=== PATIENT | male | born 1985 | race Caucasian/White ===

== ENCOUNTER 2022-08-20 22:19 | Emergency (ER) | payer BC ==
[~2022-08-20] VITALS: Ht 188 cm; Wt 129.5 kg
[2022-08-20] MEDS ORDERED: AMOXICILLIN AND1 TA2 PO (23:30)
[2022-08-20] MEDS ORDERED: PREDNISONE20 M1 PO (23:30)
[2022-08-21 00:07] VITALS: BP 117/71
== END 2022-08-20 23:50 | disposition home or self-care (01) ==
LOC: ED 22:19
DX: H66.93 Otitis media, unspecified, bilateral (principal); F17.200 Nicotine dependence, unspecified, uncomplicated; Z28.310 Unvaccinated for COVID-19

== ENCOUNTER 2023-06-15 19:30 | Emergency (ER) | payer BC ==
[~2023-06-15] VITALS: Ht 185.4 cm; Wt 129.5 kg
[~2023-06-15 19:30] MED LIST: AMOXICILLIN AND1 TA2 PO; PREDNISONE20 M1 PO
[2023-06-15 19:56] LABS: BASO # 0.04 K/mm3 (0.02-0.10); EOS # 0.09 K/mm3 (0.04-0.40); EOS % 0.8 % (0.0-4.0); HEMATOCRIT 47.2 % (42.0-52.0); HEMOGLOBIN 15.7 g/dL (13.5-18.0); MEAN CELL VOLUME 90 fl (78-100); MEAN CORPUSCULAR HEMOGLOBIN 30 pg (27-31); MEAN CORPUSCULAR HGB CONC 33 g/dL (33-37); MEAN PLATELET VOLUME 9.2 fl (7.4-10.4); MONO # 0.78 K/mm3 (0.20-0.80); NEU # 7.89 K/mm3 (1.40-6.50); PLATELET COUNT 345 K/mm3 (130-400); RED BLOOD COUNT 5.22 M/mm3 (4.20-5.60); RED CELL DISTRIBUTION WIDTH 12.3 % (11.5-14.5); WHITE BLOOD COUNT 10.7 K/mm3 (4.8-10.8)
[2023-06-15 20:03] LABS: ALBUMIN 4.6 g/dL (3.5-5.0)
[2023-06-15 20:05] LABS: CALCIUM 9.5 mg/dL (8.3-10.5)
[2023-06-15 20:06] LABS: TOTAL PROTEIN 7.4 g/dL (6.4-8.3)
[2023-06-15 20:08] LABS: TOTAL BILIRUBIN 0.4 mg/dL (0.2-1.2)
[2023-06-15] MEDS ORDERED: BACTRIM DS TAB1 EACH PO (21:42)
[2023-06-15 21:57] VITALS: BP 122/86
[2023-06-16 00:16] LABS: URINE APPEARANCE CLEAR (CLEAR); URINE BILIRUBIN NEGATIVE (NEGATIVE); URINE BLOOD TRACE (NEGATIVE); URINE COLOR YELLOW (YELLOW); URINE GLUCOSE NEGATIVE (NEGATIVE); URINE KETONE NEGATIVE (NEGATIVE); URINE NITRATE NEGATIVE (NEGATIVE); URINE PROTEIN(semi-quant) TRACE (NEGATIVE)
[2023-06-16 00:17] LABS: URINE LEUKOCYTE ESTERASE NEGATIVE (NEGATIVE); URINE MUCUS PRESENT (NOT PRESENT); URINE WBC 0-1 /hpf (0-3)
[2023-06-16] MEDS ORDERED: NORCO 325 MG-7.1 TA1 PO (13:11)
== END 2023-06-15 21:57 | disposition home or self-care (01) ==
LOC: ED 19:30
PROVIDERS: Nurse Practitioner
DX: N45.1 Epididymitis (principal); K42.9 Umbilical hernia without obstruction or gangrene
CPT/HCPCS: J0696; J1885; J2270; J2405; J3010; J7030; Q9967

== ENCOUNTER → 2023-06-16 | Outpatient (CLI) | payer BC ==
[~2023-06-16] MED LIST changes: +BACTRIM DS TAB1 EACH PO; +NORCO 325 MG-7.1 TA1 PO
== END ==
LOC: RAD 10:55
DX: N45.1 Epididymitis (principal); N50.3 Cyst of epididymis